=== PATIENT | male | born 1985 | race African-American/Black ===

== ENCOUNTER 2017-09-02 16:36 | Emergency (ER) | payer OTHER ==
[~2017-09-02] VITALS: Ht 180.3 cm; Wt 105.5 kg
[~2017-09-02 16:36] MED LIST: ABILIFY 10MG TA10 MG PO; BACTRIM DS 8001 TAB PO; BUSPAR5 MG PO; COZAAR100 MG PO; FLEXERIL 1010 MG/TAB PO; HCTZ 25MG TAB25 MG PO; LANTUS100 U/ML SC; LEVAQUIN 2250 MG/TAB PO; LORTAB 5/500 501 TAB PO; NO HOME MEDICATIONS; NORCO 325 MG-51 TAB PO; PERCOCET 325 MG1 TA2 PO; PRINIVIL10 MG PO; ZOLOFT 100MG100 MG PO; [UNRECOGNIZED DRUG - REMARK]
[2017-09-02 16:50] VITALS: BP 141/91; TEMP 98.1
[2017-09-02] MEDS ORDERED: LIPITOR20 MG PO (17:11)
[2017-09-02] MEDS ORDERED: COREG 25MG25 MG/TAB PO (17:11)
[2017-09-02] MEDS ORDERED: NOVOLOG FLEX100 U/ML SQ (17:12)
[2017-09-02 17:26] LABS: BASO % 0.6 % (0.0-2.0); EOS # 0.3 (0.0-0.7); EOS % 4.7 % (0-4.0); GRAN # 2.7 (1.4-6.5); GRAN % 37.8 % (42.2-75.2); LYMPH # 3.7 (1.2-3.4); LYMPH % 50.8 % (20.0-51.0); MEAN CELL VOLUME 86 fl (80.0-100.0); MEAN CORPUSCULAR HGB CONC 33 g/dl (33.0-37.0); MONO # 0.4 (0.1-0.6); MONO % 5.8 % (1.7-9.3); PLATELET COUNT 242 K/mm3 (130-400); RED BLOOD COUNT 3.91 M/mm3 (4.20-5.60); WHITE BLOOD COUNT 7.2 K/mm3 (4.8-10.8)
[2017-09-02 17:47] LABS: ADJUSTED CALCIUM 9.1 mg/dL (8.4-10.2); ALANINE AMINOTRANSFERASE 22 U/L (21-72); ALKALINE PHOSPHATASE 102 U/L (50-136); ANION GAP 8 mmol/L (7-16); BILIRUBIN,TOTAL 0.3 mg/dL (0.0-1.0); BLOOD UREA NITROGEN 28 mg/dL (9-20); CALCIUM 9.1 mg/dL (8.4-10.2); CARBON DIOXIDE 27 mmol/L (22-30); CHLORIDE 106 mmol/L (98-107); GLUCOSE 134 mg/dL (74-106); POTASSIUM 4.2 mmol/L (3.4-5.0); SODIUM 140 mmol/L (137-145); TOTAL PROTEIN 7.4 gm/dL (6.4-8.2)
[2017-09-02 17:50] LABS: C-REACTIVE PROTEIN < 0.5 mg/dL (0.0-0.9)
[2017-09-02 17:52] LABS: HEMATOCRIT 33.6 % (42.0-52.0); HEMOGLOBIN 11.1 g/dl (13.5-18.0); MEAN CORPUSCULAR HEMOGLOBIN 28 pg (27.0-31.0)
[2017-09-02] MEDS ORDERED: NORCO 325 MG-51 TAB PO (18:08)
[2017-09-02 18:18] VITALS: PULSE 76
== END 2017-09-02 18:18 | disposition home or self-care (01) ==
LOC: COL.ER 16:36
PROVIDERS: Family Medicine
DX: E11.40 Type 2 diabetes mellitus with diabetic neuropathy, unspecified (principal); M79.674 Pain in right toe(s); G89.29 Other chronic pain; I10 Essential (primary) hypertension; Z89.421 Acquired absence of other right toe(s); Z79.4 Long term (current) use of insulin
CPT/HCPCS: J1885